=== PATIENT | female | born 1990 | race Caucasian/White ===

== ENCOUNTER 2024-10-23 11:22 | Emergency (ER) | payer SELFPAY ==
[~2024-10-23] VITALS: Ht 167.6 cm; Wt 75.0 kg
[2024-10-23 11:30] VITALS: BP 126/80; RESP 18; TEMP 36.8; O2SAT 99
[2024-10-23 11:36] VITALS: PULSE 85; O2SAT 99
[2024-10-23 11:52] LABS: BASOPHILS % 0.5 % (0.0-2.0); EOSINOPHILS % 0.2 % (0.0-5.0); HEMATOCRIT. 37.3 % (36.0-48.0); HEMOGLOBIN. 12.6 g/dL (12.0-16.0); LYMPHOCYTES % 15.5 % (20.0-50.0); MEAN CORPUSCULAR HEMOGLOBIN 30.1 pg (28.0-32.0); MEAN CORPUSCULAR HGB CONC 33.6 g/dL (31.0-37.0); MEAN CORPUSCULAR VOLUME 89.5 fL (81.0-99.0); MEAN PLATELET VOLUME 7.6 fl (7.4-10.4); MONOCYTES % 5.9 % (2.0-8.0); NEUTROPHILS % 77.9 % (40.0-76.0); PLATELET 366 x1000/uL (130-400); RED BLOOD CELL COUNT 4.17 mill/uL (4.2-5.4); RED CELL DISTRIBUTION WIDTH 13.2 % (11.6-14.6); WHITE BLOOD COUNT 7.6 x1000/uL (4.5-11.0)
[2024-10-23 12:09] LABS: CHLORIDE 102 mEq/L (98-107); POTASSIUM 4.1 mEq/L (3.5-5.1); SODIUM 136 mEq/L (136-145)
[2024-10-23 12:10] LABS: CALCIUM 9.3 mg/dL (8.7-10.4); CARBON DIOXIDE 27 mEq/L (21-32)
[2024-10-23 12:14] LABS: CREATININE 0.8 mg/dL (0.6-1.0); HCG SCREEN POSITIVE
[2024-10-23 12:15] VITALS: TEMP 98.3
[2024-10-23 12:15] LABS: GLUCOSE 96 mg/dL (70-105); UREA NITROGEN BLOOD 8 mg/dL (9-23)
[2024-10-23] MEDS: ACETAMINOPHEN 325MG TABLET PO ONE (12:15)
[2024-10-23] MEDS: METOCLOPRAMIDE 10MG/10 ML UDC PO ONE (12:15)
[2024-10-23 12:16] LABS: ALANINE AMINOTRANSFERASE 49 IU/L (10-49); ALBUMIN 4.3 g/dL (3.2-4.8); ASPARTATE AMINOTRANSFERASE 37 IU/L (<34)
[2024-10-23 12:17] LABS: BILIRUBIN DIRECT 0.2 mg/dL (<=3.0); BILIRUBIN TOTAL 0.7 mg/dL (0.1-1.0); PROTEIN TOTAL 8.2 g/dL (6.0-8.3)
[2024-10-23 12:56] LABS: CLARITY URINE CLEAR (CLEAR); COLOR URINE YELLOW (YELLOW); GLUCOSE URINE NEGATIVE (NEGATIVE); KETONES URINE 1+ (NEGATIVE); LEUKOCYTE ESTERASE URINE NEGATIVE (NEGATIVE); NITRITE URINE NEGATIVE (NEGATIVE); OCCULT BLOOD URINE NEGATIVE (NEGATIVE); PH URINE 6.5 (4.5-8.0); PROTEIN URINE NEGATIVE (NEGATIVE); SPECIFIC GRAVITY URINE 1.013 (1.005-1.030)
[2024-10-23] MEDS ORDERED: DOXY1TAB8 PO (14:59)
== END 2024-10-23 15:23 | disposition home or self-care (01) ==
LOC: ER 11:22
DX: O26.891 Other specified pregnancy related conditions, first trimester (principal); O99.611 Diseases of the digestive system complicating pregnancy, first trimester; R10.812 Left upper quadrant abdominal tenderness; R10.2 Pelvic and perineal pain; R11.0 Nausea; N93.9 Abnormal uterine and vaginal bleeding, unspecified; Z3A.01 Less than 8 weeks gestation of pregnancy
CPT/HCPCS: 99284; 76705; 76801; 80076; 80048; 81003; 81025; 84703; 84702; 85025; 36415; 76817; J8597

== ENCOUNTER 2025-05-24 07:02 | Emergency (ER) | payer MEDICAID ==
[~2025-05-24] VITALS: Ht 167.6 cm; Wt 85.0 kg
[~2025-05-24 07:02] MED LIST: DOXY1TAB8 PO
[2025-05-24 07:08] VITALS: O2SAT 99
[2025-05-24 07:44] LABS: BASOPHILS % 1.2 % (0.0-2.0); EOSINOPHILS % 0.4 % (0.0-5.0); HEMATOCRIT. 35.2 % (36.0-48.0); HEMOGLOBIN. 11.7 g/dL (12.0-16.0); LYMPHOCYTES % 21.6 % (20.0-50.0); MEAN PLATELET VOLUME 8.5 fl (7.4-10.4); MONOCYTES % 4.3 % (2.0-8.0); NEUTROPHILS % 72.5 % (40.0-76.0); PLATELET 342 x1000/uL (130-400); RED BLOOD CELL COUNT 3.91 mill/uL (4.2-5.4); RED CELL DISTRIBUTION WIDTH 14.8 % (11.6-14.6)
[2025-05-24 07:57] LABS: INR 0.9
[2025-05-24 07:59] LABS: CREATININE 0.6 mg/dL (0.6-1.0); UREA NITROGEN BLOOD 9 mg/dL (9-23)
[2025-05-24 08:00] LABS: ASPARTATE AMINOTRANSFERASE 120 IU/L (<34)
[2025-05-24 08:01] LABS: BILIRUBIN DIRECT 0.5 mg/dL (<=3.0); BILIRUBIN TOTAL 1.0 mg/dL (0.1-1.0); PROTEIN TOTAL 7.1 g/dL (6.0-8.3)
[2025-05-24 08:17] LABS: B-HCG QUANTITATIVE 9318 mIU/mL (<6)
[2025-05-24 08:59] VITALS: BP 108/74; PULSE 86; RESP 15; TEMP 37.2; O2SAT 98
[2025-05-24 10:06] LABS: HCG SCREEN POSITIVE
== END 2025-05-24 09:30 | disposition short-term general hospital (02) ==
LOC: ER 07:21
DX: O26.893 Other specified pregnancy related conditions, third trimester (principal); R10.2 Pelvic and perineal pain; Z3A.37 37 weeks gestation of pregnancy; Z79.899 Other long term (current) drug therapy
CPT/HCPCS: 36415; 76815; 80048; 80076; 80320; 83735; 84702; 84703; 85025; 86850; 86900; 99285; G0480